=== PATIENT | female | born 1995 | race Two or more races ===

== ENCOUNTER 2020-02-07 11:28 | Outpatient (CLI) | payer OTHER ==
--- NOTE | 2020-02-07 16:22 | Ultrasound Report ---
PROCEDURE: OB F/U or Repeat INDICATIONS: LOW LYING PLACENTA OUTSIDE/PRIOR DATING DATA: Last menstrual period (LMP): 06/19/2019. LMP-based estimated date of delivery (EVITA): 03/25/2020. First dating scan (date and location): None available. Estimated date of delivery (EVITA) from first dating scan: Established gestational age from today's shobha dy is 34 weeks, 4 days. TECHNIQUE: Real-time scanning was performed of the fetus, with image documentation and biometric measurements. Endovaginal scanning: Not performed COMPARISON: None. FINDINGS: General: A single living intrauterine gestation is present. Presentation: Vertex Placenta: Placental position is fundal and posterior, without previa. Amniotic fluid index: 15.4 cm, normal for gestational age. Largest pocket is 4.6 cm. heart rate: 149 beats per minute. Maternal cervical canal: About 3.5 cm long; normal length is 2.5 cm or more. biometrics: Biparietal diameter: 8.7 cm, 35 weeks, 3 days Head circumference: 31.5 cm, 35 weeks, 2 days Abdominal circumference: 31 cm, 34 weeks, 6 days Femur length: 6.5 cm, 33 weeks, 4 days Estimated gestational age from initial scan: not applicable. Composite gestational age from present scan: 34 weeks, 4 days Estimated weight and percentile: 2477 g Measurement variability in biometric dating: +/- 10 days from 12-20 weeks gestation, +/- 2 weeks from 20-30 weeks gestation, +/- 3 weeks at 30 weeks gestation or more. Other: tone, movement, and proximal respirations were visualized. Biophysical profile sco re is 8 out of 8. IMPRESSION: 1. Single live intrauterine with a composite gestational age on today's scan of 34 weeks, 4 days. 2. Fundal placenta without evidence of previa or abruption. 3. Normal biophysical profile score. Reviewed by: Kalani Sevilla MD on 02/07/2020 4:21 PM PDT Approved by: Kalani Sevilla MD on 02/07/2020 4:21 PM PDT Station ID: [id number]
== END 2020-02-07 11:29 | disposition home or self-care (01) ==
LOC: DI 11:28
PROVIDERS: ATTEND Nurse Practitioner Obstetrics & Gynecology
DX: O44.43 Low lying placenta NOS or without hemorrhage, third trimester (principal); Z3A.34 34 weeks gestation of pregnancy
CPT/HCPCS: 76816

== ENCOUNTER 2020-02-29 08:00 | Outpatient (CLI) | payer OTHER | END 2020-02-29 23:59 | disposition home or self-care (01) | LOC: LAB.R 08:00 | PROVIDERS: ATTEND Advanced Practice Midwife | DX: Z36.85 Encounter for antenatal screening for Streptococcus B (principal); Z34.90 Encounter for supervision of normal pregnancy, unspecified, unspecified trimester | CPT/HCPCS: 87797 ==

== ENCOUNTER 2020-03-20 15:24 | Inpatient (IN) | payer OTHER ==
[2020-03-20] MEDS ORDERED: miSOPROStoL 200 MCG TABLET BC PRN (15:57)
[2020-03-20] MEDS ORDERED: fentaNYL 100 MCG/2 ML VIAL IVP PRN (15:57)
[2020-03-20] MEDS ORDERED: SODIUM CHLORIDE FLUSH 0.9% 10 ML SYRINGE IVP PRN (15:57)
[2020-03-20] MEDS ORDERED: LIDOCAINE-MPF 1% 30 ML VIAL ID PRN (15:57)
[2020-03-20] MEDS ORDERED: CARBOPROST TROMETHAMINE 250 MCG/ML AMP IM PRN (15:57)
[2020-03-20] MEDS ORDERED: OXYTOCIN 10 UNIT/ML VIAL IM PRN (15:57)
[2020-03-20] MEDS ORDERED: ONDANSETRON 4 MG/2 ML VIAL IVP PRN ×2 (15:57→17:24)
[2020-03-20] MEDS ORDERED: TRANEXAMIC ACID 1,000 MG in SODIUM CHLORIDE 0.9% 100ML 100 ML IV PRN (15:57)
[2020-03-20] MEDS ORDERED: OXYTOCIN/SODIUM CHLORIDE 500 ML IV PRN (15:57)
[2020-03-20] MEDS ORDERED: METHYLERGONOVINE 0.2 MG/ML VIAL IM PRN (15:57)
--- NOTE | 2020-03-20 16:08 | HISTORY & PHYSICAL EXAMINATION ---
Admit History - Visit Reason Visit Reason: Contractions - : 1 Parity: 0 Premature: 0 Ectopic: 0 : 0 Care: positive: [facility], Other ([facility] after transfer of care from [facility] at 29.5wks) Risk/History: positive: None Complications This : positive: None Smoking Status: Never smoker - Mother's Labs Mother's Blood Type: positive: O Mother's RH: positive: Positive GBS: positive: Group B Step Negative Rubella Status: positive: Immune - Other Maternal History Other Maternal History: -25yo at 39.2 wks gestation who presents to Labor and Delivery with report of contractions which started around noon today. -Reports movement -Denies VB/LOF - care with [facility] which has been adequate, after transfer of care at 29.5wks from [facility] and a [facility] in [place] - Complications *None -Dating Criteria *US at 11.1 wks which showed EVITA (03/18/2020), but kept LMP EVITA of 03/25/2020 -OB Hx *G1:current -Medications * vitamin-daily -Allergies *NKDA -Medical History *Non contributory -Surgical History *None -Family History *Non contributory -Social History *Non contributory - Labs, Immunizations, and Findings *PN ángel goes here -SVE - /-1 -Vertex by digital exam -EFW by rm's: 7-7.5# -FHTs as charted -Assessment *25yo at 39.2wks gestation in early/active labor * Heart Tones- Category I -Plan *Admit to L&D inpatient *Monitoring- Continuous *COVID swab- per unit protocol- URGENT *Comfort measures available- position changes, whirlpool tub, fentanyl, and epidural per maternal preference *Diet/Activity- per maternal preference *Anticipate Review of Systems - All Other Systems All Other Systems: reports: Reviewed and negative Physical - Abdominal Exam Vital Signs: Temp Pulse Resp BP Pulse Ox 36.6 C 77 20 115/67 99 03/20/20 15:42 03/20/20 15:42 03/20/20 15:42 03/20/20 15:42 03/20/20 15:42 Contraction Frequency (min/apart): 2-4 Contraction Intensity: positive: Moderate Uterine Resting Tone: positive: Soft - Monitoring Heart Rate Baseline: 135 Strip Review: positive: Category I (accels, no decels, moderate variability) - Presentation Presentation: positive: Vertex - Vaginal Exam Membranes: positive: Membranes intact Dilation (in cm): 4 Effacement (%): 90 Station: positive: 0 Plan for Labor - Plan For Labor I expect patient to be DC'd or transferred within 96 hours.: Yes
[2020-03-20] MEDS: LACTATED RINGERS 1,000 ML IV SCH ×2 (16:35→21:20)
[2020-03-20 16:38] LABS: BASOPHILS % (AUTO) 0.4 %; EOSINOPHILS % (AUTO) 0.3 %; HGB - HEMOGLOBIN 14.1 g/dL (12.0-16.0); LYMPHOCYTES # (AUTO) 1.4 10^3/uL (1.5-3.5); MEAN CORPUSCULAR HGB CONC 34.7 g/dL (32.0-36.0); MEAN CORPUSCULAR VOLUME 86.4 fL (81.0-99.0); MEAN PLATELET VOLUME 13.2 fL (7.9-10.8); MONOCYTES # (AUTO) 0.7 10^3/uL (0.0-1.0); MONOCYTES % (AUTO) 6.6 %; NEUTROPHILS # (AUTO) 8.2 10^3/uL (1.5-6.6); NEUTROPHILS % (AUTO) 78.9 %; PLT - PLATELET COUNT 163 10^3/uL (130-450); RED CELL DISTRIBUTION WIDTH 13.2 % (12.0-15.0); WHITE BLOOD COUNT 10.4 x10^3/uL (4.8-10.8)
[2020-03-20] MEDS ORDERED: fentaNYL 100 MCG/2 ML VIAL ONE ×2 (16:41→16:43)
[2020-03-20] MEDS ORDERED: ROPIVACAINE 0.2% 200 MG/100 ML BAG EP ONE (16:42)
[2020-03-20] MEDS ORDERED: BUPIVACAINE 0.25% PF 10 ML VIAL ONE ×2 (16:42→21:17)
[2020-03-20] MEDS ORDERED: ROPIVACAINE 0.2% 200 MG/100 ML BAG EP PRN ×2 (17:24→21:33)
[2020-03-20] MEDS ORDERED: diphenhydrAMINE INJ 50 MG/ML VIAL IVP PRN (17:24)
[2020-03-20] MEDS ORDERED: NALBUPHINE 10 MG/ML AMP IVP PRN (17:24)
[2020-03-20] MEDS ORDERED: NALOXONE 0.4 MG/ML VIAL IVP PRN (17:24)
[2020-03-20] MEDS ORDERED: METOCLOPRAMIDE 10 MG/2 ML VIAL IVP PRN (17:24)
--- NOTE | 2020-03-20 17:24 | ANESTHESIA ---
Pre-Anesthesia VS, & Labs - Diagnosis active labor - Procedure labor epidural Vital Signs: Temp Pulse Resp BP Pulse Ox 36.6 C 77 20 115/67 99 03/20/20 15:42 03/20/20 15:42 03/20/20 15:42 03/20/20 15:42 03/20/20 15:42 Height: 5 ft 1 in Weight (kg): 82.554 kg Body Mass Index: 34.4 BMI Classification: Obese - Is Patient ?: Yes - Lab Results Current Lab Results: Laboratory Tests 03/20/20 16:20: WBC 10.4, RBC 4.70, Hgb 14.1, Hct 40.6, MCV 86.4, MCH 30.0, MCHC 34.7, RDW 13.2, Plt Count 163, MPV 13.2 H, Neut # (Auto) 8.2 H, Lymph # (Auto) 1.4 L, [place] # (Auto) 0.7, Eos # (Auto) 0.0, Baso # (Auto) 0.0, Absolute Nucleated RBC 0.00, Nucleated RBC % 0.0 Lab results reviewed: Yes Fish Bones: 03/20/20 16:20 Home Medications and Allergies Active Medications Carboprost Tromethamine (Hemabate) 250 mcg IM Q15M PRN PRN Reason: Step 4: Hemorrhage protocol Stop: 03/25/20 15:57 Fentanyl (Fentanyl) 50 mcg IVP Q1H PRN PRN Reason: PAIN Lactated Ringer's (Lr) 1,000 mls @ 150 mls/hr IV .Q6H40M LAUREN Last Admin: 03/20/20 16:35 Dose: 250 mls/hr Documented by: Oxytocin/Sodium Chloride (Pitocin/Sodium Chloride) 500 mls @ 999 mls/hr IV PRN PRN; Protocol PRN Reason: POST- HEMORR PREVENTION Stop: 03/25/20 15:57 Tranexamic Acid 1,000 mg/ (Sodium Chloride) 110 mls @ 660 mls/hr IV .ONCE PRN PRN Reason: EBL >1200mL and within 3hr Stop: 03/25/20 15:57 Lidocaine HCl (Xylocaine-Mpf 1% Vial) 30 ml ID .ONCE PRN PRN Reason: PERINEAL REPAIR Stop: 03/25/20 15:57 Methylergonovine Maleate (Methergine Inj) 0.2 mg IM .ONCE PRN PRN Reason: Step 2: Hemorrhage protocol Stop: 03/25/20 15:57 Misoprostol (Cytotec) 800 mcg BC .ONCE PRN PRN Reason: Step 3: Hemorrhage protocol Stop: 03/25/20 15:57 Ondansetron HCl (Zofran Inj) 4 mg IVP Q4H PRN PRN Reason: Nausea / Vomiting Oxytocin (Pitocin) 10 unit IM .ONCE PRN PRN Reason: Step one: If no IV access Stop: 03/25/20 15:57 Sodium Chloride (Normal Saline Flush 0.9%) 10 ml IVP PRN PRN PRN Reason: NEEDED PER PROVIDER ORDERS Sodium Chloride (Normal Saline Flush 0.9%) 10 ml IVP 0100,0900,1700 LAUREN Anes History & Medical History - Anesthetic History Anesthesia Complications: reports: No previous complications Family history of Anesthesia Complications: Denies Family history of Malignant Hyperthermia: Denies - Medical History Cardiovascular: reports: None Pulmonary: reports: None Gastrointestinal: reports: None Urinary: reports: None Neuro: reports: None Musculoskeletal: reports: None Endocrine/Autoimmune: reports: None Blood Disorders: reports: None Skin: reports: None Smoking Status: Never smoker - Obstetrical History : 1 Parity: 0 Events: positive: None Complications: positive: None Exam General: Alert, Oriented x3, Cooperative, No acute distress Plan Anesthesia Type: Epidural Consent for Procedure(s) Verified and Reviewed: Yes Code Status: Attempt Resuscitation ASA classification: 2-Mild systemic disease Is this case an emergency?: No
--- NOTE | 2020-03-20 22:02 | PROVIDER PROGRESS NOTE ---
Labor Progress Note - Uterine Monitoring Uterine Monitoring Mode: positive: External toco Contraction Frequency (min/apart): 2-3 : 60-90 Contraction Intensity: positive: Moderate to strong Uterine Resting Tone: positive: Soft - Monitoring Monitor Mode: positive: External ultrasound Heart Rate Baseline: 145 Heart Rate Variability: positive: Moderate (6-25 bmp) Accelerations: positive: Present, 15x15 Decelerations: positive: Early (most decels appear clearly in the early position, although some are hard to determine r/t utx monitoring) Strip Review: positive: Category I - Vaginal Exam Dilation (in cm): 10 Effacement (%): 100 Station: 0 Cervical Position: Anterior - Labor Progress Note Labor Progress Note/Additional Text: S: Ashley is resting comfortably in bed. She just received an epidural bolus r/t increase in pain and pressure, which she reports as effective. Myron at bedside, very supportive. O: SVE for changes in FHT: c/c/0 AROM for clear at 2013, was 8/90/-1 A: 25yo at 39.2wks in active labor Complete dilatation FHT Cat I P: Anticipate Labor down for one hour, or until sensation of pressure, or sooner PRN Continuous monitoring Epidural for pain management
[2020-03-21] MEDS ORDERED: WITCH HAZEL/GLYCERIN 1 PAD TOP PRN (00:49)
[2020-03-21] MEDS ORDERED: HYDROCORTISONE 1% CREAM 28 GM TUBE PR PRN (00:49)
--- NOTE | 2020-03-21 00:55 | DELIVERY NOTE ---
Delivery Note - Labor Labor: positive: Spontaneous - Delivery Method Delivery Method: positive: Spontaneous vaginal delivery - Presentation Presentation: positive: Vertex, ZACHARY - right occiput anterior - Nuchal Cord Nuchal Cord: positive: Present (x1, loose, reduced) - Anesthetic Anesthetic Type: - Amniotic Fluid Description Amniotic Fluid Description: positive: Clear - Laceration Laceration: positive: 1st degree, 2nd degree, Perineal, Periurethral - Suture Suture Type: positive: Vicryl Suture Size: positive: 3-0 - Delivery Outcome Delivery Outcome: positive: Livebirth - [place]: positive: Placed in direct skin contact with mother, Bulb syringe, Stimulated, Warmed, [place] used [place] sex: positive: Female : 8 : 9 - Cord Cord: positive: 3 vessels - Placenta Placenta: positive: Intact, Spontaneous - Estimated Blood Loss Estimated Blood Loss (in cc): 300 - Post Delivery Events Post Delivery Events: positive: No post delivery events - Delivery Comments (Free Text/Narrative) Delivery Comments (Free Text/Narrative): Note: Labor: This 25 year old, , @39.2wks gestation presented @ approx 1600 in early/active labor . Cervix was 4/90/-1 and vertex. FHR pattern demonstrated 125 baseline in a Category I pattern. Normal labor course. Epidural placed upon maternal request. AROM occurred @ 2013 and amount and color of fluid were noted to be moderate and clear, cervix was 8/90/0 at that time. She progressed to c/c/0 at 2150, and labored down for an hour before starting to push with coaching. : Normal of a female infant on 03/20/2020 @ 2352. Loose nuchal cord was present and reduced. The was placed on maternal abdomen, stimulated, dried and placed skin to skin. Apgars 8 at one minute and 9at five minutes. The umbilical cord was allowed to stop pulsating at which time it was doubly clamped by CNM and cut by FOB. Pitocin administered via IV for hemostasis. Fundal massage and gentle cord traction applied for active third stage management. Cord blood was obtained. Placenta delivered spontaneously and intact at 0017. Three vessel cord. EBL 300mL. Fourth Stage: Uterine fundus firm and without excessive bleeding. The perineum, vagina, and cervix were inspected and found to have sustained a second degree perineal laceration and bilateral first degree periurethral lacerations. Repair was performed with 3-0 vicryl in both locations under sterile conditions, in standard fashion. Vaginal examination following repair was done. Tissues well approximated. initiated. Family bonding well. Both mother and baby are in stable condition.
[2020-03-21] MEDS: DOCUSATE SODIUM 100 MG CAPSULE PO SCH ×3 (03:19→07:55)
[2020-03-21] MEDS: ACETAMINOPHEN 500 MG TABLET PO SCH ×2 (03:20→11:19)
[2020-03-21] MEDS: IBUPROFEN 600 MG TABLET PO SCH ×2 (07:55→14:22)
--- NOTE | 2020-03-21 07:58 | PROVIDER PROGRESS NOTE ---
Subjective - Prog Note Date Prog Note Date: 03/21/20 Prog Note Time: 07:56 - Subjective Pt reports feeling: Improved Subjective: S: Ashley is resting in bed, baby. She reports her whole body is sore and her perineum is too, however she feels her pain is well controlled with PO nsaids. FOB is supportive at bedside. O: Excellent latch, well Lochia rubra- moderate Fundus firm A: 25yo s/p on day 1 Normal course Perineum healing well well P: Continue with routine care Evaluate for discharge home tomorrow Objective - Vital Signs/Intake & Output Vital Signs: Vital Signs x48h Temp Pulse Resp BP 03/21/20 03:00 36.7 C 81 18 130/68 03/21/20 02:05 76 16 129/76 Intake & Output: Intake & Output 03/18/20 03/19/20 03/20/20 03/21/20 23:59 23:59 23:59 23:59 Intake Total 2862.5 1500 Output Total 450 Balance 2412.5 1500 - Lab Results Fish Bones: 03/20/20 16:20 Other Labs: Lab Results x24hrs 03/20/20 03/20/20 Range/Units 16:20 16:20 WBC 10.4 (4.8-10.8) x10^3/uL RBC 4.70 (4.20-5.40) 10^6/uL Hgb 14.1 (12.0-16.0) g/dL Hct 40.6 (37.0-47.0) % MCV 86.4 (81.0-99.0) fL MCH 30.0 (27.0-31.0) pg MCHC 34.7 (32.0-36.0) g/dL RDW 13.2 (12.0-15.0) % Plt Count 163 (130-450) 10^3/uL MPV 13.2 H (7.9-10.8) fL Neut # (Auto) 8.2 H (1.5-6.6) 10^3/uL Lymph # (Auto) 1.4 L (1.5-3.5) 10^3/uL [place] # (Auto) 0.7 (0.0-1.0) 10^3/uL Eos # (Auto) 0.0 (0.0-0.7) 10^3/uL Baso # (Auto) 0.0 (0.0-0.1) 10^3/uL Absolute Nucleated RBC 0.00 x10^3/uL Nucleated RBC % 0.0 /100WBC Blood Type O POSITIVE Antibody Screen NEGATIVE
[2020-03-21] MEDS: LACTATED RINGERS 1,000 ML IV SCH ×2 (08:22→13:06)
[2020-03-21] MEDS: SODIUM CHLORIDE FLUSH 0.9% 10 ML SYRINGE IVP SCH ×2 (08:22→11:20)
[2020-03-22] MEDS: ACETAMINOPHEN 500 MG TABLET PO SCH (06:37)
[2020-03-22] MEDS: IBUPROFEN 600 MG TABLET PO SCH ×2 (06:37→12:27)
[2020-03-22] MEDS: DOCUSATE SODIUM 100 MG CAPSULE PO SCH (06:38)
[2020-03-22 09:26] VITALS: BP 128/76
--- NOTE | 2020-03-22 12:05 | DISCHARGE SUMMARY ---
Discharge Summary - HPI History of Present Illness: Admit Date 03/20/2020 Discharge Date 03/22/2020 Diagnosis on Admission: 1. A 25yo at 49.2 week intrauterine 2. Early Active Labor Diagnosis on Discharge 1. A 25yo s/p spontaneous vaginal delivery on 03/20/2020 2. Normal recovery Brief History: She is a patient at [facility] who presented on 03/20/2020 with complaints of contractions. The patient was found to contract every 2 to 3 minutes and her cervix was 4cm dilated, 90%effaced, and -1 station. She spontaneously delivered a viable female infant. Apgars were 8 and 9- and 1 and 5 minutes respectively. EBL 300mL. The patient has a 2nd degree perineal laceration, and bilateral 1st degree periurethral lacerations that were repaired with 3-0 vicryl in usual fashion under sterile conditions. She has been doing well in her course. She is ambulating and tolerating a regular diet. She is urinating without difficulty and her lochia is normal. Her pain is well controlled with oral medications. She will be discharge d home today on day #2 without need for prescriptions. She will be discharged to Boarder Status. She intends to follow up with Midwifery at [facility] in 1, and 6 weeks for routine visit. She has been given precautions to call if she has any worsening fevers, chills, abdominal pain, increased bleeding or foul smelling vaginal lochia. - ALLERGIES Allergies/Adverse Reactions: Allergies Allergy/AdvReac Type Severity Reaction Status Date / Time No Known Drug Allergies Allergy Verified 03/21/20 03:19 - LABS Result Diagrams: 03/20/20 16:20
--- NOTE | 2020-03-22 12:06 | Discharge Plan ---
Discharge Plan Problem Reviewed?: Yes Disposition: Home, Self Care Condition: Good Diet: Regular Activity Restrictions: No Restrictions Shower Restrictions: No Driving Restrictions: No Weight Bearing: Full Weight Additional Instructions or Follow Up instructions: Follow up at 1 and 6 weeks with Midwifery care No Smoking: If you smoke, Please STOP! Call for help. Follow-up with: Caroline Bishop ARNP [Provider Admit Priv/Credential] -
--- NOTE | 2020-03-22 16:37 | Labor Flowsheet ---
Labor Flowsheet Datetime Report Generated by CPN: 03/22/2020 16:36 Datetime: 03/22/2020 09:23 VITAL SIGNS NBP Sys/[place]/Mean (mmHg): 128 : 76 : 87 Pulse: 85 Datetime: 03/22/2020 06:34 SpO2 (%): 99 Datetime: 03/21/2020 00:17 Stage 2 Comments: 3 vessel cord placenta intact see provider note Datetime: 03/20/2020 23:52 Stage of : Recovery UTERINE ACTIVITY Monitor Mode: External Monitor Interventions for UA: [place] Adjusted Frequency (min): 2-3 Quality: Strong Duration (sec): 50-80 Pattern: Normal: <= 5 Contractions in 10 Minutes Resting Tone (Palpate): Relaxed Contraction Comments: Pt pushing well w cntxs ASSESSMENT A Monitor Mode: External US FHR Baseline Changes: No Baseline Change Variability: Moderate 6-25 bpm Accelerations: 15X15 Decelerations: Variable Category: Category II Comments: Delivery Datetime: 03/20/2020 23:44 LaborFlag: Labor Datetime: 03/20/2020 23:30 FHR Baseline Rate : 140 Oxygen Method: Room Air Datetime: 03/20/2020 23:07 Patient Position/Activity: Low Fowlers I/O Interventions: [place] Discontinued Patient Care Comments: 420 ml out w cabello DC Datetime: 03/20/2020 23:00 Temperature (C): 37.0 Monitor Interventions for FHR: Ultrasound Adjusted Pain Presence: None/Denies Pain Type: Pressure Comfort Measures: Breathing/Relaxation; Coaching STAGE 2 Pushing: Coached on Pushing; Urge to Push Pushing Position: Pushing with Contractions Pushing Progress: Descent with Pushing COMMUNICATION Communication: RN at Bedside; Provider at Bedside Datetime: 03/20/2020 22:54 VAGINAL EXAM Dilatation (cm): 10.0 Station: 2 Exam by: [place] Vaginal Exam Comments: pt ready to push per CNM Datetime: 03/20/2020 22:29 Respirations: 16 PAIN Pain Scale: 0 Pain Goal: 0 Pain Assessment Comments: Pt feeling pressure intermittantly while laboring down MATERNAL ASSESSMENT Level of Consciousness: Alert Headache: Denies Nausea/Vomiting: Denies RUQ Epigastric Pain: Denies Datetime: 03/20/2020 21:50 Effacement (%): 100 Datetime: 03/20/2020 21:35 Pain Location: Abdomen; Back Pain Relief Measures: Epidural Given; Comfort Measures Pain Coping: Talking Through Contractions Datetime: 03/20/2020 21:00 Actions for Decelerations: Side to Side Datetime: 03/20/2020 20:14 Membranes Rupture Method: Artificial Amniotic Fluid Color: Clear Amniotic Fluid Amount: Small Amniotic Fluid Odor: Normal Membrane Comments: AROMED by CNM-per pt request Datetime: 03/20/2020 20:11 Vaginal Bleeding: None Cervix, Consistency: Soft Cervix, Position: Midposition Datetime: 03/20/2020 19:39 Membranes Ruptured Date/Time: 03/20/2020 20:14 Datetime: 03/20/2020 19:34 Provider Reviewed Strip: Yes Strip Reviewed by: TRISTON Bishop Notification Reason: Status Update; Status; Labor Status; Membrane Status; Uterine Activity Datetime: 03/20/2020 19:15 Breath Sounds, Left: Clear and Equal Breath Sounds, Right: Clear and Equal Datetime: 03/20/2020 19:10 Provider Notified (Name): Caroline Bishop CNM Communication Comments: Notified that pt is leaking light green fluid, but still has a bulging bag of fluid and is 9cm, -1. Datetime: 03/20/2020 19:04 Hygiene: Jessica Care; Peripad Changed Datetime: 03/20/2020 18:01 Anesthesia Level Check: T10- Umbilicus Datetime: 03/20/2020 17:10 Epidural Procedure Other: Pump Started Anesthesia Comments: 10 mls every 50 minutes, no PRN dosing Datetime: 03/20/2020 17:06 ANESTHESIA Anesthesia Plans: Epidural Epidural Procedure: Loading Dose Datetime: 03/20/2020 17:02 Epidural Positioning: Sitting Datetime: 03/20/2020 16:54 PROCEDURE TIME OUT Procedure Verify: Correct Patient Position Datetime: 03/20/2020 16:33 PATIENT CARE IV/Blood Work: IV Started
== END 2020-03-22 13:00 | disposition home or self-care (01) | DRG 807 ==
LOC: WFO 15:24 → FBP 15:26 → WFO 15:56 → FBP 15:57
PROVIDERS: ADMIT Advanced Practice Midwife; ATTEND Advanced Practice Midwife
PROC: 10907ZC Drainage of Amniotic Fluid, Therapeutic from Products of Conception, Via Natural or Artificial Opening (ICD-10-PCS; 2020-03-20)
PROC: 10E0XZZ Delivery of Products of Conception, External Approach (ICD-10-PCS; principal; 2020-03-21)
PROC: 0KQM0ZZ Repair Perineum Muscle, Open Approach (ICD-10-PCS; 2020-03-21)
DX: O70.1 Second degree perineal laceration during delivery (principal); Z37.0 Single live birth; O69.81X0 Labor and delivery complicated by cord around neck, without compression, not applicable or unspecified; Z3A.39 39 weeks gestation of pregnancy; Z20.828 Contact with and (suspected) exposure to other viral communicable diseases
CPT/HCPCS: 85025; 86850; 86900; 86901; 87635; 99213; A9270; J7120